=== PATIENT | male | born 1975 | race American Indian/Alaskan Native ===

== ENCOUNTER 2018-02-25 21:48 | Emergency (ER) | payer BC, OTHER ==
[2018-02-25 22:01] VITALS: BP 126/76
[2018-02-26] MEDS ORDERED: TORADOL IV ONE (00:12)
[2018-02-26] MEDS ORDERED: REGLAN IV ONE (00:12)
[2018-02-26] MEDS ORDERED: BENADRYL IV ONE (00:12)
--- NOTE | 2018-02-26 00:35 | Emergency Department Report ---
ED Headache HPI - General Chief Complaint: Headache Stated Complaint: HEAD HURTS Time Seen by Provider: 02/25/18 23:49 - History of Present Illness Initial Comments: 42-year-old -[place] male with a known past medical history of migraines comes in for intermittent headache for many years. Patient reports today around 5 PM he started having pain in the back of his neck that moved to the front. Patient reports he took 2 Goody powders And 2 ibuprofen which she reports did not help. Patient admits to nausea but not at this moment. Patient reported he had vomited 1. He denies any fever or chills. He reports some blurred vision and photophobia. Patient denies any head trauma. Timing/Duration: 4-6 hours Quality: severe Head Injury Location: frontal, occipital Recent Head Trauma: no recent headache/trauma, chronic headaches Modifying Factors: improves with: exposure to light Associated Symptoms: nausea/vomiting. denies: fatigue, facial pain, fever/ chills, nasal congestion, nasal drainage, seizures, sinus infection, stiff neck Allergies/Adverse Reactions: Allergies No Known Allergies Allergy (Unverified 07/16/15 14:20) Home Medications: Ambulatory Orders Butalbit/Acetamin/Caff/Codeine [Fioricet/Codeine 24-678-61-30] 1 cap PO Q6HR PRN #30 cap 07/16/15 Ibuprofen [Motrin] 600 mg PO Q8H PRN #50 tablet 07/16/15 Promethazine [Phenergan TAB] 25 mg PO Q6HR PRN #20 tab 07/16/15 Butalb/Acetaminophen/Caffeine [Fioricet 50-300-40 mg CAP] 1 cap PO Q8HR PRN #30 cap 02/26/18 ED Review of Systems ROS: Stated complaint: HEAD HURTS Other details as noted in HPI Comment: All other systems reviewed and negative Gastrointestinal: nausea (resolved), vomiting (Stimes 1) Neurological: headache ED Past Medical Hx - Past Medical History Previous Medical History?: No - Surgical History Past Surgical History?: Yes Additional Surgical History: vasectomy - Social History Smoking Status: Current Every Day Smoker Substance Use Type: None - Medications Home Medications: Home Medications Medication Instructions Recorded Confirmed Last Taken Type Butalbit/Acetamin/Caff/Codeine 1 cap PO Q6HR PRN #30 cap 07/16/15 Unknown Rx [Fioricet/Codeine 98-109-25-30] Ibuprofen [Motrin] 600 mg PO Q8H PRN #50 tablet 07/16/15 Unknown Rx Promethazine [Phenergan TAB] 25 mg PO Q6HR PRN #20 tab 07/16/15 Unknown Rx Butalb/Acetaminophen/Caffeine 1 cap PO Q8HR PRN #30 cap 02/26/18 Unknown Rx [Fioricet 50-300-40 mg CAP] ED Physical Exam - General Limitations: No Limitations General appearance: alert, in no apparent distress - Head Head exam: Present: atraumatic, normocephalic - Eye Eye exam: Present: PERRL, EOMI - ENT ENT exam: Present: mucous membranes moist - Neck Neck exam: Present: tenderness (left posterior), full ROM - Respiratory Respiratory exam: Present: normal lung sounds bilaterally. Absent: respiratory distress - Cardiovascular Cardiovascular Exam: Present: regular rate, normal rhythm. Absent: systolic murmur, diastolic murmur, rubs, gallop - Extremities Exam Extremities exam: Present: normal inspection, full ROM. Absent: pedal edema - Expanded Neurological Exam Expanded Patient oriented to: Present: person, place, time Speech: Present: fluid speech Cranial nerves: EOM's Intact: Normal, Gag Reflex: Normal, Tongue Deviation: Normal, Nystagmus: Normal, Facial Sensation: Normal, Facial Palsy with Forehead Movement: Normal, Facial Palsy without Forehead Movement: Normal Cerebellar function: Finger to Nose: Normal, Heel to Westfall: Normal, Romberg: Normal Upper motor neuron: Shree Neglect: Normal, Pronator Drift: Normal Sensory exam: Upper Extremity Light Touch: Normal, Upper Extremity Pin Prick: Normal, Upper Extremity Temperature: Normal, UE 2 Point Discrimination: Normal, Lower Extremity Light Touch: Normal, Lower Extremity Pin Prick: Normal, Lower Extremity Temperature: Normal, LE 2 Point Discrimination: Normal Motor strength exam: RUE: 5, LUE: 5, RLE: 5, LLE: 5 Best Eye Response (Iglesia): (4) open spontaneously Best Motor Response (Iglesia): (6) obeys commands Best Verbal Response (Valmy): (5) oriented Valmy Total: 15 - Psychiatric Psychiatric exam: Present: normal affect, normal mood - Skin Skin exam: Present: warm, dry, intact, normal color. Absent: rash ED Course Vital Signs 02/25/18 21:59 Temperature 98.3 F Pulse Rate 66 Respiratory 16 Rate Blood Pressure 126/76 O2 Sat by Pulse 100 Oximetry - Reevaluation(s) Reevaluation #1: 02/26/18 00:55 Patient reports that headache is improving. ED Medical Decision Making - Medical Decision Making Patient has been evaluated by this provider fast track. Patient has no neuro deficits IV insertion for IV Reglan and Toradol and Benadryl. Discussed the patient I will refer him to a primary care provider as well as a neurologist. We'll discharge patient on fouricet Patient verbalized understanding Critical care attestation.: If time is entered above; I have spent that time in minutes in the direct care of this critically ill patient, excluding procedure time. ED Disposition Clinical Impression: Headache Qualifiers: Headache type: tension-type Headache chronicity pattern: acute headache Intractability: intractable Qualified Code(s): G44.201 - Tension-type headache, unspecified, intractable Disposition: DC- TO HOME OR SELFCARE Is pt being admited?: No Does the pt Need Aspirin: No Condition: Stable Instructions: Acute Headache (ED) Additional Instructions: Please take headache medication as prescribed. Please follow up with her primary care provider as well as a neurologist. I have listed their information below for your convenience. Prescriptions: Butalb/Acetaminophen/Caffeine [Fioricet 50-300-40 mg CAP] 1 cap PO Q8HR PRN #30 cap PRN Reason: Headache Referrals: PRIMARY CAREMD [Primary Care Provider] - 3-5 Days ANIKA MORGAN MD [Staff Physician] - 3-5 Days ANAID STEPHEN JR, MD [Staff Physician] - 3-5 Days ZENOBIA DAILY MD [Staff Physician] - 3-5 Days ADE PAIZ MD [Referring] - 3-5 Days ASHLEY FENTON MD [Staff Physician] - 3-5 Days Forms: Work/School Release Form(ED)
== END 2018-02-26 01:25 | disposition home or self-care (01) ==
LOC: ED 21:48
DX: G44.201 Tension-type headache, unspecified, intractable (principal); F17.200 Nicotine dependence, unspecified, uncomplicated
CPT/HCPCS: 96374; 96375; 99282; J1200; J1885; J2765